=== PATIENT | male | born 1970 | race Caucasian/White ===

== ENCOUNTER 2021-03-15 10:39 | Inpatient (IN) ==
[2021-03-15 11:39] LABS: Basophils # (auto) 0.02 K/uL (0-0.2); Basophils % (auto) 0.2 %; Eosinophils # (auto) 0.04 K/uL (0-0.5); Eosinophils % (auto) 0.4 %; Hemoglobin 15.4 g/dL (14.0-18.0); Immature Granulocytes # (auto) 0.03 K/uL (0.00-0.02); Immature Granulocytes % (auto) 0.3 %; Lymphocytes # (auto) 1.24 K/uL (1.2-3.4); Lymphocytes % (auto) 11.1 %; Mean Corpuscular Hgb Conc 34.2 g/dL (32-36); Mean Corpuscular Volume 93.6 fL (80-100); Mean Platelet Volume 9.5 fL (7.4-10.4); Monocytes % (auto) 17.9 %; Neutrophils # (auto) 7.87 K/uL (1.4-6.5); Neutrophils % (auto) 70.1 %; Platelet Count 465 K/uL (130-400); RDW Coefficient of Variation 12.7 % (11.5-14.5); RDW Standard Deviation 43.9 fL (36.4-46.3); Red Blood Count 4.81 M/uL (4.7-6.1)
[2021-03-15 11:47] LABS: INR 1.2 (0.9-1.1); Partial Thromboplastin Ratio 0.9; Partial Thromboplastin Time 24.7 Seconds (21.0-31.0)
[2021-03-15 11:58] LABS: Alanine Aminotransferase 44 (12-78); Albumin Level 2.7 gm/dl (3.4-5.0); Aspartate Aminotransferase 21 U/L (15-37); BUN Creatinine Ratio 11.2 (10-20); Blood Urea Nitrogen 10 mg/dl (7-18); Calcium 8.9 mg/dl (8.5-10.1); Carbon Dioxide 27 mmol/L (21-32); Chloride 104 mmol/L (98-107); Creatinine Clr Calc Pharmacy 104.1 ml/min; Est GFR (African American) 113.6 ml/min; Glucose 91 mg/dl (70-99); Magnesium 2.3 mg/dl (1.8-2.4); Potassium 3.8 mmol/L (3.5-5.1); Sodium 137 mmol/L (136-145)
[2021-03-15 12:25] LABS: Albumin Globulin Ratio 0.5 (0.9-2); Alkaline Phosphatase 71 U/L (45-117); Bilirubin,Total 0.8 mg/dl (0.2-1); Total Protein 7.7 gm/dl (6.4-8.2); Troponin I < 0.015 ng/ml (0-0.045)
--- NOTE | 2021-03-15 12:46 | XRay Report ---
XR chest 1V portable CLINICAL HISTORY: SOB. Right-sided chest pain with episode of hemoptysis. COMPARISON STUDY: No previous studies for comparison. TECHNIQUE: 1 view of the chest FINDINGS: Single frontal view of the chest demonstrates the cardiomediastinal silhouette to be within normal li mits. There is suspicion of patchy interstitial and alveolar opacities bilaterally. The findings are most characteristic of a viral type pneumonitis. Covid 19 pneumonia should be excluded. There is no e vidence for pleural effusion. There is no evidence for vascular congestion. There is no acute osseous pathology. IMPRESSION: There is suspicion of patchy interstitial and alveolar opacities bilaterally characterist ic of a viral type pneumonitis and probable early Covid 19 pneumonia. ACT 112: Negative or not required by law. Electronically signed by: Osmani Medina M.D. 03/15/2021 12:44 PM
[2021-03-15] MEDS ORDERED: KETOROLAC 30 MG/ML VIAL IV STA (13:32)
--- NOTE | 2021-03-15 13:41 | Emergency Department Note ---
History of Present Illness General Chief complaint: Cough Stated complaint: COVID PNEUMONIA, COUGHING UP BLOOD Time Seen by Provider: 03/15/21 13:17 History of Present Illness Maximum Pain Intensity: 8 50-year-old male presents emergency department he was Covid positive on February 27, he states he has been quarantined and he was on an inhaler and prednisone for which he stopped taking yesterday. Patient states this morning he had right- sided pleuritic chest pain with a cough. Patient noticed that he had blood after coughing. Patient denies any significant shortness of breath. Patient denies nausea vomiting diarrhea fever. There are no other mitigating or alleviating factors Home Medications Medication Instructions Recorded Confirmed Type albuterol sulfate 90 mcg/actuation 2 puff INHALATION .Q4-6H 03/15/21 03/15/21 History aerosol inhaler prednisone 20 mg tablet 20 mg PO QAM 03/15/21 03/15/21 History Allergies Allergy/AdvReac Type Severity Reaction Status Date / Time No Known Allergies Allergy Unverified 03/15/21 14:52 Past Med/Surg History Medical History IBS (irritable bowel syndrome) Surgical History (Updated 03/15/21 @ 16:09 by Kim Harrington PA-C) History of colonoscopy Family History (Updated 03/15/21 @ 16:10 by Kim Harrington PA-C) Daughter Ulcerative colitis Father Depression Suicide Social History (Updated 03/15/21 @ 16:40 by Kim Harrington PA-C) Smoking Status: Current every day smoker Tobacco Type: Smokeless Tobacco (Dip or Chew) Do You Dip or Chew Tobacco: Yes; Hx Alcohol Use: Yes Alcohol Intake Frequency: Monthly or Less Hx Substance Use: No Preferred Language: German Communication Ability: Effective marital status: Feels Safe at Home: Yes Review of Systems A total of 10 systems reviewed and were otherwise negative Constitutional: no body aches Respiratory: + cough Cardiovascular: + chest pain; no calf pain Physical Exam Vital Signs Vital Signs - 24 hr 03/15/21 11:06 03/15/21 13:34 Temperature 36.9 C Temperature Source Oral Pulse Rate 108 H 94 H Pulse Rhythm Regular Pulse Strength Normal Respiratory Rate 20 28 H Respiratory Effort / Characteristics Non-Labored Non-Labored Respiratory Depth Normal Normal Respiratory Pattern Regular Blood Pressure 137/79 Blood Pressure Mean 98 Pulse Oximetry 91 94 Oxygen Delivery Method Room Air Room Air Sepsis Recent Fever Within 48 Hours No Sepsis New/Unexplained Change in Mental Status N/A Sepsis Action Taken by Nursing No Action Required VITAL SIGNS - Vital signs and nursing notes were reviewed. GENERAL -50-year-old male appearing his stated age who is in no acute distress. Communicates well with provider and answers questions appropriately. SKIN - Without rashes. HEAD - NC/AT. EYES - PERRL with EOMI bilaterally. Sclera anicteric. Palpebral conjunctiva pink and moist with no injection noted. EARS - No deformities of external structures noted on gross examination bilaterally. NOSE - Midline and without cyanosis. No epistaxis or purulent drainage noted. Septum midline without deviation or septal hematoma noted. MOUTH/OROPHARYNX - Without perioral cyanosis. Buccal mucosa pink and moist and without leukoplakia. Tongue midline with equal elevation of palate bilaterally. No tonsillar hypertrophy, erythema, or exudates noted. [] dentition noted. NECK - Neck with FROM. Supple to palpation. LUNGS - Chest wall symmetric without accessory muscle use, intercostals retractions, or central cyanosis. Normal vesicular breath sounds CTA B/L. No wheezes, rales, or rhonchi appreciated. CARDIAC - RRR with S1/S2. No murmur, rubs, or gallops appreciated. ABDOMEN - Abdominal nondistended. BS normoactive all four quadrants. No tenderness, palpable masses, hepatosplenomegaly, or ascites noted. EXTREMITIES - No clubbing or peripheral cyanosis. No pretibial edema present. +5/5 strength noted in UE/LE bilaterally. The calves are nontender bilaterally NEUROLOGIC - Cranial nerves II through XII grossly intact. Sensory intact to light touch throughout. PSYCH - A&Ox3 and cooperates fully with examiner. Pt is very pleasant and interacts well with examiner. Course Course Patient is resting in no distress is not hypoxic not tachycardic not hypotensive, patient was given IV Toradol for pleuritic chest pain. The case was discussed with the [facility] hospitalist for admission and they will decide the anticoagulation therapy that they will be using for this patient inpatient Administered Medications Discontinued Medications Ioversol (Optiray 320 125ml) 120 ml IV ONCE ONE Stop: 03/15/21 15:14 Last Admin: 03/15/21 15:17 Dose: 120 ml Documented by: [id number] Ketorolac Tromethamine (Ketorolac 30 Mg/Ml Vial) 30 mg IV NOW STA Stop: 03/15/21 13:33 Last Admin: 03/15/21 13:39 Dose: 30 mg Documented by: [id number] Medical Decision Making Medical Records Attestation: I reviewed the patient's medical records. Laboratory Data Attestation: I reviewed the patient's lab results. Result diagrams: 03/15/21 11:27 03/15/21 11:27 Lab Results 03/15/21 03/15/21 03/15/21 Range/Units 11:27 11:27 11:27 WBC 11.20 H (4.8-10.8) K/uL RBC 4.81 (4.7-6.1) M/uL Hgb 15.4 (14.0-18.0) g/dL Hct 45.0 (42-52) % MCV 93.6 (80-100) fL MCH 32.0 (25-34) pg MCHC 34.2 (32-36) g/dL RDW Std Deviation 43.9 (36.4-46.3) fL RDW Coeff of Melissa 12.7 (11.5-14.5) % Plt Count 465 H (130-400) K/uL MPV 9.5 (7.4-10.4) fL Immature Gran % (Auto) 0.3 % Neut % (Auto) 70.1 % Lymph % (Auto) 11.1 % Troup % (Auto) 17.9 % Eos % (Auto) 0.4 % Baso % (Auto) 0.2 % Neut # (Auto) 7.87 H (1.4-6.5) K/uL Lymph # (Auto) 1.24 (1.2-3.4) K/uL Troup # (Auto) 2.00 H (0.11-0.59) K/uL Eos # (Auto) 0.04 (0-0.5) K/uL Baso # (Auto) 0.02 (0-0.2) K/uL Immature Gran # (Auto) 0.03 H (0.00-0.02) K/uL PT 12.0 (9.0-12.0) Seconds INR 1.2 H (0.9-1.1) APTT 24.7 (21.0-31.0) Seconds PTT Ratio 0.9 Sodium 137 (136-145) mmol/L Potassium 3.8 (3.5-5.1) mmol/L Chloride 104 (98-107) mmol/L Carbon Dioxide 27 (21-32) mmol/L Anion Gap 6.0 (3-11) BUN 10 (7-18) mg/dl Creatinine 0.92 (0.6-1.4) mg/dl Est Cr Clr Drug Dosing 104.1 ml/min Est GFR ( Amer) 113.6 ml/min Est GFR (Non-Af Amer) 98.0 ml/min BUN/Creatinine Ratio 11.2 (10-20) Glucose 91 (70-99) mg/dl Calcium 8.9 (8.5-10.1) mg/dl Magnesium 2.3 (1.8-2.4) mg/dl Ferritin (8-388) ng/ml Total Bilirubin 0.8 (0.2-1) mg/dl AST 21 (15-37) U/L ALT 44 (12-78) Alkaline Phosphatase 71 (45-117) U/L Troponin I < 0.015 (0-0.045) ng/ml C-Reactive Protein (0-0.29) mg/dl Total Protein 7.7 (6.4-8.2) gm/dl Albumin 2.7 L (3.4-5.0) gm/dl Globulin 5.0 H (2.5-4.0) gm/dl Albumin/Globulin Ratio 0.5 L (0.9-2) 03/15/ Range/Units 11:27 WBC (4.8-10.8) K/uL RBC (4.7-6.1) M/uL Hgb (14.0-18.0) g/dL Hct (42-52) % MCV (80-100) fL MCH (25-34) pg MCHC (32-36) g/dL RDW Std Deviation (36.4-46.3) fL RDW Coeff of Melissa (11.5-14.5) % Plt Count (130-400) K/uL MPV (7.4-10.4) fL Immature Gran % (Auto) % Neut % (Auto) % Lymph % (Auto) % Troup % (Auto) % Eos % (Auto) % Baso % (Auto) % Neut # (Auto) (1.4-6.5) K/uL Lymph # (Auto) (1.2-3.4) K/uL Troup # (Auto) (0.11-0.59) K/uL Eos # (Auto) (0-0.5) K/uL Baso # (Auto) (0-0.2) K/uL Immature Gran # (Auto) (0.00-0.02) K/uL PT (9.0-12.0) Seconds INR (0.9-1.1) APTT (21.0-31.0) Seconds PTT Ratio Sodium (136-145) mmol/L Potassium (3.5-5.1) mmol/L Chloride (98-107) mmol/L Carbon Dioxide (21-32) mmol/L Anion Gap (3-11) BUN (7-18) mg/dl Creatinine (0.6-1.4) mg/dl Est Cr Clr Drug Dosing ml/min Est GFR ( Amer) ml/min Est GFR (Non-Af Amer) ml/min BUN/Creatinine Ratio (10-20) Glucose (70-99) mg/dl Calcium (8.5-10.1) mg/dl Magnesium (1.8-2.4) mg/dl Ferritin 1732.5 H (8-388) ng/ml Total Bilirubin (0.2-1) mg/dl AST (15-37) U/L ALT (12-78) Alkaline Phosphatase (45-117) U/L Troponin I (0-0.045) ng/ml C-Reactive Protein 11.00 H (0-0.29) mg/dl Total Protein (6.4-8.2) gm/dl Albumin (3.4-5.0) gm/dl Globulin (2.5-4.0) gm/dl Albumin/Globulin Ratio (0.9-2) Imaging Data Radiologist's Impression: Chest X-Ray 03/15/21 11:10 XR chest 1V portable CLINICAL HISTORY: SOB. Right-sided chest pain with episode of hemoptysis. COMPARISON STUDY: No previous studies for comparison. TECHNIQUE: 1 view of the chest FINDINGS: Single frontal view of the chest demonstrates the cardiomediastinal silhouette to be within normal limits. There is suspicion of patchy interstitial and alveolar opacities bilaterally. The findings are most characteristic of a viral type pneumonitis. Covid 19 pneumonia should be excluded. There is no evidence for pleural effusion. There is no evidence for vascular congestion. There is no acute osseous pathology. IMPRESSION: There is suspicion of patchy interstitial and alveolar opacities bilaterally characteristic of a viral type pneumonitis and probable early Covid 19 pneumonia. ACT 112: Negative or not required by law. Electronically signed by: Osmani Medina M.D. 03/15/2021 12:44 PM Chest CTA 03/15/21 12:47 CT angio chest PE protocol CLINICAL HISTORY: COVID + recently, cough w/ blood, tachycardia TECHNIQUE: Multidetector row helical CT of the chest was performed. Coronal and sagittal reformations were obtained. Coronal and sagittal MIPS were obtained from the axial data set and were submitted for review. Automated dose lowering techniques and/or adjustment according to patient size were utilized for this exam. Comparison: None available at the time of this dictation. FINDINGS: Lungs and pleura: Multifocal airspace opacities are seen bilaterally. Heart and pericardium: Heart size is normal. No pericardial effusion. Vessels: Exam is highly limited by streak artifact and patient motion. There is possible pulmonary embolus in the right lower lobe segmental and subsegmental arteries. Mediastinum and lonnie: Subcentimeter lymph nodes are seen. Chest wall and lower neck: Unremarkable. Abdomen: Unremarkable. Bones: Unremarkable. IMPRESSION: 1. Multifocal airspace opacities are seen compatible with history of Covid pneumonia. 2. Highly limited exam. Possible pulmonary embolus in the right lower lobe segmental and subsegmental arteries. ACT 112: Negative or not required by law. Electronically signed by: Richard Wright M.D. 03/15/2021 3:38 PM ECG Data Attestation: I personally reviewed and interpreted this ECG as follows: Additional Comments: EKG interpreted by me normal sinus rhythm rate of 94, right bundle branch block, normal axis, no ST segment elevation or depression, normal intervals MDM Narrative * MDM, pleurisy, PE, bronchitis, pneumonia; will check CT r/o PE Impression & Plan Pulmonary embolism Discharge Plan Visit Data Chief Complaint: Cough Stated Complaint: COVID PNEUMONIA, COUGHING UP BLOOD ED Provider: Chuck Rodriguez Discharge Problem: Pulmonary embolism Patient Disposition: Being Evaluated by Hospitalist Forms Stand Alone Forms: My [facility] Prescriptions Prescriptions: No Action prednisone 20 mg tablet 20 mg PO QAM RF: 0 albuterol sulfate 90 mcg/actuation HFA aerosol inhaler 2 puff INHALATION .Q4-6H RF: 0 Referrals Referrals: PCP,NO [Physician] - Discharge Problem: Pulmonary embolism Qualifiers: Pulmonary embolism type: multiple subsegmental (without acute cor pulmonale) Qualified Code(s): I26.94 - Multiple subsegmental pulmonary emboli without acute cor pulmonale
[2021-03-15] MEDS ORDERED: OPTIRAY 320 125ml IV ONE (15:13)
--- NOTE | 2021-03-15 15:39 | CT Scan Report ---
CT angio chest PE protocol CLINICAL HISTORY: COVID + recently, cough w/ blood, tachycardia TECHNIQUE: Multidetector row helical CT of the chest was performed. Coronal and sagittal reformations were obtained. Coronal and sagittal MIPS were obtained from the axial data set and were submitted fo r review. Automated dose lowering techniques and/or adjustment according to patient size were utiliz ed for this exam. Comparison: None available at the time of this dictation. FINDINGS: Lungs and pleura: Multifocal airspace opacities are seen bilaterally. Heart and pericardium: Heart size is normal. No pericardial effusion. Vessels: Exam is highly limited by streak artifact and patient motion. There is possible pulmonary em bolus in the right lower lobe segmental and subsegmental arteries. Mediastinum and lonnie: Subcentimeter lymph nodes are seen. Chest wall and lower neck: Unremarkable. Abdomen: Unremarkable. Bones: Unremarkable. IMPRESSION: 1. Multifocal airspace opacities are seen compatible with history of Covid pneumonia. 2. Highly limited exam. Possible pulmonary embolus in the right lower lobe segmental and subsegmenta l arteries. ACT 112: Negative or not required by law. Electronically signed by: Richard Wright M.D. 03/15/2021 3:38 PM
[2021-03-15 16:36] LABS: Ferritin 1732.5 ng/ml (8-388)
[2021-03-15] MEDS ORDERED: Heparin IV Adult Wt-Based Standard *NO* Bolus Protocol IV STA (16:39)
--- NOTE | 2021-03-15 16:54 | History & Physical Report ---
Date of Service March 15, 2021 Assessment & Plan (1) Pneumonia due to COVID-19 virus: (2) Pulmonary embolism: (3) Chest pain: (4) Blood-streaked sputum: Plan: Covid-19 Pneumonia - PNA dx 03/09; COVID dx 03/03 Possible pulmonary embolism R lower lobe segmental and subsegmental arteries. R sided chest pain Blood streaked sputum admit to [facility] Sx consistent with PE as well as CTA findings Start IV heparin will repeat CTA tomorrow to have PE confirmation before watermelon inspector tx obtain dimer, b/l venous Doppler obtain echocardiogram IV dexamethasone daily out of window for remdesivir currently not requiring oxygen prn nebs, incentive spirometry, anti-tussives Doxycycline 100mg bid esr, crp, pro siomara, ferritin pending Tobacco use, chewing tobacco encourage smoking cessation declines nicotine patch DVT ppx: IV Heparin Dispo: [facility] FULL CODE Pt collaborated with Dr. Webber, please see addendum History of Present Illness Chief Complaint: R sided chest pain x 1 day, hemoptysis, Known COVID-19 dx. Primary Care Provider: Anny Bosch This is a 50 yr old M who is otherwise healthy and takes no prescribed medications who presents to ED due to R sided chest pain x 1 day. He was dx with covid-19 on 03/03/21 with initial sx starting on 02/27/21. He initially had fever, sore throat, congestion and cough. Sx progressed to SNYDER. He had a CXR on 03/09 which showed viral pneumonia. He was prescribed oral prednisone 20mg daily x 6 days. Yesterday he developed R sided chest pain that was worse with movement and inspiration. Pain improved with toradol administration in the ER. Her further complains of worsening SNYDER and episodes of hemoptysis this morning with, "coughing fits." He describes it as coughing fits and sputum production that were blood streaked several times. Currently he is comfortable and has not developed fever for the past 3 days. He has lost his taste and smell. Initially had diarrhea, but this has since resolved. He denies f/c/s, chest pain, sob, n/v/d, abd pain, change in bowel or urinary habits. Appetite is overall dec reased. Allergies Allergy/AdvReac Type Severity Reaction Status Date / Time No Known Allergies Allergy Unverified 03/15/21 14:52 Home Medications Medication Instructions Recorded Confirmed Type albuterol sulfate 90 mcg/actuation 2 puff INHALATION .Q4-6H 03/15/21 03/15/21 History aerosol inhaler prednisone 20 mg tablet 20 mg PO QAM 03/15/21 03/15/21 History Past Med/Surg History Medical History IBS (irritable bowel syndrome) Surgical History (Updated 03/15/21 @ 16:09 by Kim Harrington PA-C) History of colonoscopy Family History (Updated 03/15/21 @ 16:10 by Kim Harrington PA-C) Daughter Ulcerative colitis Father Depression Suicide Social History (Updated 03/15/21 @ 16:40 by Kim Harrington PA-C) Smoking Status: Current every day smoker Tobacco Type: Smokeless Tobacco (Dip or Chew) Do You Dip or Chew Tobacco: Yes; Hx Alcohol Use: Yes Alcohol Intake Frequency: Monthly or Less Hx Substance Use: No Preferred Language: Gabonese Communication Ability: Effective marital status: Feels Safe at Home: Yes Review of Systems Review of Systems: All systems reviewed & are unremarkable except as noted in HPI & below Physical Exam Physical Exam: Please refer to Dr. Webber addendum for physical exam findings. Results & Data Results & Data ([facility]) Vital Signs (Past 12 Hours) Vital Signs Temp Pulse Resp BP Pulse Ox 03/15/21 13:34 94 H 28 H 94 03/15/21 11:06 36.9 C 108 H 20 137/79 91 Diagnostic Findings Chest X-Ray 03/15/21 11:10 XR chest 1V portable CLINICAL HISTORY: SOB. Right-sided chest pain with episode of hemoptysis. COMPARISON STUDY: No previous studies for comparison. TECHNIQUE: 1 view of the chest FINDINGS: Single frontal view of the chest demonstrates the cardiomediastinal silhouette to be within normal limits. There is suspicion of patchy interstitial and alveolar opacities bilaterally. The findings are most characteristic of a viral type pneumonitis. Covid 19 pneumonia should be excluded. There is no evidence for pleural effusion. There is no evidence for vascular congestion. There is no acute osseous pathology. IMPRESSION: There is suspicion of patchy interstitial and alveolar opacities bilaterally characteristic of a viral type pneumonitis and probable early Covid 19 pneumonia. ACT 112: Negative or not required by law. Electronically signed by: Osmani Medina M.D. 03/15/2021 12:44 PM Chest CTA 03/15/21 12:47 CT angio chest PE protocol CLINICAL HISTORY: COVID + recently, cough w/ blood, tachycardia TECHNIQUE: Multidetector row helical CT of the chest was performed. Coronal and sagittal reformations were obtained. Coronal and sagittal MIPS were obtained from the axial data set and were submitted for review. Automated dose lowering techniques and/or adjustment according to patient size were utilized for this exam. Comparison: None available at the time of this dictation. FINDINGS: Lungs and pleura: Multifocal airspace opacities are seen bilaterally. Heart and pericardium: Heart size is normal. No pericardial effusion. Vessels: Exam is highly limited by streak artifact and patient motion. There is possible pulmonary embolus in the right lower lobe segmental and subsegmental arteries. Mediastinum and lonnie: Subcentimeter lymph nodes are seen. Chest wall and lower neck: Unremarkable. Abdomen: Unremarkable. Bones: Unremarkable. IMPRESSION: 1. Multifocal airspace opacities are seen compatible with history of Covid pneumonia. 2. Highly limited exam. Possible pulmonary embolus in the right lower lobe segmental and subsegmental arteries. ACT 112: Negative or not required by law. Electronically signed by: Richard Wright M.D. 03/15/2021 3:38 PM Medications Administered Medication List Discontinued Medications Ioversol (Optiray 320 125ml) 120 ml IV ONCE ONE Stop: 03/15/21 15:14 Last Admin: 03/15/21 15:17 Dose: 120 ml Documented by: [id number] Ketorolac Tromethamine (Ketorolac 30 Mg/Ml Vial) 30 mg IV NOW STA Stop: 03/15/21 13:33 Last Admin: 03/15/21 13:39 Dose: 30 mg Documented by: [id number] ECG Rate (beats per minute): 94 Rhythm: normal sinus Findings: + RBBB COVID-19 Results Results COVID-19 Adm Lab Results: RBC 4.81 M/uL (4.7-6.1) 03/15/21 WBC 11.20 K/uL (4.8-10.8) H 03/15/21 Hgb 15.4 g/dL (14.0-18.0) 03/15/21 Hct 45.0 % (42-52) 03/15/21 Plt Count 465 K/uL (130-400) H 03/15/21 Neutrophils (%) (Auto) 70.1 % 03/15/21 Lymphocytes (%) (Auto) 11.1 % 03/15/21 Monocytes # (Auto) 2.00 K/uL (0.11-0.59) H 03/15/21 Eosinophils # (Auto) 0.04 K/uL (0-0.5) 03/15/21 Immature Granulocyte % (Auto) 0.3 % 03/15/21 Neutrophils # (Auto) 7.87 K/uL (1.4-6.5) H 03/15/21 Lymphocytes # (Auto) 1.24 K/uL (1.2-3.4) 03/15/21 Monocytes # (Auto) 2.00 K/uL (0.11-0.59) H 03/15/21 Eosinophils # (Auto) 0.04 K/uL (0-0.5) 03/15/21 Basophils # (Auto) 0.02 K/uL (0-0.2) 03/15/21 Immature Granulocyte # (Auto) 0.03 K/uL (0.00-0.02) H 03/15/21 Na 137 mmol/L (136-145) 03/15/21 K 3.8 mmol/L (3.5-5.1) 03/15/21 Cl 104 mmol/L (98-107) 03/15/21 CO2 27 mmol/L (21-32) 03/15/21 Anion Gap 6.0 (3-11) 03/15/21 BUN 10 mg/dl (7-18) 03/15/21 Creatinine 0.92 mg/dl (0.6-1.4) 03/15/21 BUN/Creatinine Ratio 11.2 (10-20) 03/15/21 Glucose Level 91 mg/dl (70-99) 03/15/21 Ca 8.9 mg/dl (8.5-10.1) 03/15/21 Total Bilirubin 0.8 mg/dl (0.2-1) 03/15/21 AST/SGOT 21 U/L (15-37) 03/15/21 ALT/SGPT 44 (12-78) 03/15/21 Alkaline Phosphatase 71 U/L (45-117) 03/15/21 Total Protein 7.7 gm/dl (6.4-8.2) 03/15/21 Albumin 2.7 gm/dl (3.4-5.0) L 03/15/21 Globulin 5.0 gm/dl (2.5-4.0) H 03/15/21 Albumin/Globulin Ratio 0.5 (0.9-2) L 03/15/21 Troponin I < 0.015 ng/ml (0-0.045) 03/15/21 CRP 11.00 mg/dl (0-0.29) H 03/15/21 Procalcitonin 0.06 ng/ml (0-0.5) 03/15/21 Ferritin 1732.5 ng/ml (8-388) H 03/15/21 D-Dimer Pending 03/15/21 PTT 24.7 Seconds (21.0-31.0) 03/15/21 INR 1.2 (0.9-1.1) H 03/15/21 Chest X-Ray 03/15/21 Code Status & VTE Plan Code Status Full Code VTE Prophylaxis Plan VTE Prophylaxis will be ordered: No Supervising Physician Co-Signing Physician Notes Patient is a 50-year-old male with no significant medical history who was recently diagnosed to have Covid pneumonia and completed a course of steroid as outpatient presents with history of persistent cough, minimal hemoptysis, right- sided chest pain with deep breathing, dyspnea on exertion, poor appetite. Please review HPI for complete details of presentation. Blood work suggestive of leukocytosis 11 K, thrombocytosis 465, ferritin elevated at 1732, CRP 11. Procalcitonin within normal range. Troponins negative x2. CTA showed multifocal airspace opacities compatible with history of COVID-19 pneumonia, possible pulmonary embolus in the right lower lobe segment and segmental arteries although highly limited exam due to streak artifact and patient motion. Patient was documented to have oxygen saturation 91 on room air while in ED. Patient denies any chest trauma. Physical Exam: Vitals signs as noted above General Appearance:Moderately built and nourished, no apparent distress Head: normocephalic, Atraumatic Eyes: normal inspection, EOMI Neck: supple, Trachea midline Respiratory/Chest: Decreased breath sounds, CTA, No accessory muscle use Cardiovascular: S1, S2, No murmur Abdomen/GI:Soft, Non tender, Bowel sounds present Extremities/Musculoskeletal:normal inspection, no edema Neurologic/Psych:AAOX3, grossly no focal neurological deficits Skin: normal color, warm COVID-19 pneumonia Possible pulmonary embolism CTA non confirmatory for PE We will obtain D-dimer, venous Doppler and resting echo We will give gentle fluids and repeat CT for PE tomorrow. Antitussives. Given elevated CRP and oxygen saturation 91, will start on dexamethasone Out of window for remdesivir Empirically start on doxycycline We will consider pulmonary evaluation if patient develops significant hemoptysis Patient understand the risk of worsening of hemoptysis /bleeding and agrees to proceed with anticoagulation given possible PE. I personally reviewed the record. Patient is interviewed and examined at [facility]. Patient's care is coordinated with Kim Harrington PA-C. Please refer to the documentation above for details of patient's presentation and for discussion of other issues. (1) Pulmonary embolism Pulmonary embolism type: multiple subsegmental (without acute cor pulmonale) Qualified Code(s): I26.94 - Multiple subsegmental pulmonary emboli without acute cor pulmonale
[2021-03-15] MEDS ORDERED: HEPARIN 25000 UNIT/500 ML D5W IV ONE (17:05)
[2021-03-15] MEDS ORDERED: dexAMETHasone 6 MG in SYRINGE 0 ML IV ONE (17:15)
[2021-03-15] MEDS: HEPARIN SODIUM/DEXTROSE 25,000 UNITS/500 ML BAG IV SCH (17:30)
--- NOTE | 2021-03-15 18:06 | Ultrasound Report ---
BILATERAL LOWER EXTREMITY VENOUS DOPPLER HISTORY: Acute pain and swelling of the lower legs Possible PE on CT R/O DVT COMPARISON STUDY: None. FINDINGS: There is normal compressibility, flow, and augmentation within the bilateral lower extremit y deep venous systems. IMPRESSION: No DVT within the right or left lower extremity. ACT 112: Negative or not required by law. Electronically signed by: Brent Oro M.D. 03/15/2021 6:05 PM
[2021-03-15 18:12] LABS: D Dimer 10100 ug/L FEU (0-500)
[2021-03-15] MEDS ORDERED: POLYETHYLENE (MIRALAX) 17 GM PACK PO PRN (18:35)
[2021-03-15] MEDS ORDERED: guaiFENesin/DEXTROM SYRUP 200MG/20MG 10ML UDC PO PRN (18:35)
[2021-03-15] MEDS ORDERED: MAGNESIUM HYDROXIDE SUSP 30 ML UDC PO PRN (18:35)
[2021-03-15] MEDS ORDERED: ONDANSETRON INJ 2 MG/ML 2 ML VIAL IV PRN (18:35)
[2021-03-15] MEDS ORDERED: ALUMINUM/MAGNESIUM SUSP 30 ML UDC PO PRN (18:35)
[2021-03-15] MEDS ORDERED: ALBUTEROL 0.083% NEBU SOLN 3 ML VIAL NEB PRN (18:35)
[2021-03-15] MEDS ORDERED: SODIUM CHLORIDE 0.9% 1000ML 1,000 ML IV ONE (19:00)
[2021-03-15] MEDS: BENZONATATE 100 MG CAPSULE PO SCH (20:10)
[2021-03-15] MEDS: DOXYCYCLINE HYCLATE 100 MG CAP PO SCH (20:10)
[2021-03-16 00:01] LABS: Partial Thromboplastin Ratio 1.3
[2021-03-16] MEDS ORDERED: HEPARIN SOD (PORCINE) 1000 UNIT/ML IV ONE (00:20)
[2021-03-16 06:27] LABS: Hematocrit (blood only) 40.8 % (42-52); Hemoglobin 14.1 g/dL (14.0-18.0); Mean Corpuscular Hemoglobin 31.7 pg (25-34); Mean Corpuscular Hgb Conc 34.6 g/dL (32-36); Mean Corpuscular Volume 91.7 fL (80-100); Mean Platelet Volume 9.5 fL (7.4-10.4); Platelet Count 441 K/uL (130-400); RDW Coefficient of Variation 12.4 % (11.5-14.5); RDW Standard Deviation 41.8 fL (36.4-46.3); Red Blood Count 4.45 M/uL (4.7-6.1); White Blood Count 13.57 K/uL (4.8-10.8)
[2021-03-16 07:03] LABS: Partial Thromboplastin Ratio 1.6; Partial Thromboplastin Time 41.6 Seconds (21.0-31.0)
[2021-03-16 07:11] LABS: BUN Creatinine Ratio 16.6 (10-20); Calcium 8.7 mg/dl (8.5-10.1); Creatinine Clr Calc Pharmacy 131.3 ml/min; Est GFR (African American) 127.1 ml/min; Est GFR (Non-African American) 109.7 ml/min; Potassium 4.5 mmol/L (3.5-5.1)
[2021-03-16] MEDS: ACETAMINOPHEN 325 MG TAB PO PRN ×2 (09:43→21:04)
[2021-03-16] MEDS: BENZONATATE 100 MG CAPSULE PO SCH ×3 (09:43→21:00)
[2021-03-16] MEDS: dexAMETHasone 6 MG in SYRINGE 0 ML IV SCH (09:44)
[2021-03-16] MEDS: DOXYCYCLINE HYCLATE 100 MG CAP PO SCH (10:26)
[2021-03-16] MEDS: HEPARIN SODIUM/DEXTROSE 25,000 UNITS/500 ML BAG IV SCH ×2 (11:26→15:19)
[2021-03-16] MEDS ORDERED: OPTIRAY 320 125ml IV ONE (11:56)
--- NOTE | 2021-03-16 12:29 | CT Scan Report ---
CT angio chest PE protocol CT DOSE: 499.80 mGycm HISTORY: 50 years-old Male with PE. Acute shortness of breath with tachycardia and cough. COVID Pos itive. TECHNIQUE: Multiple CTA images of the chest were obtained after the intravenous administration of 119 ml Optiray. Coronal and sagittal MIPS were obtained from the axial data set and were submitted for review. All measurements were obtained according to NASCET criteria. A dose lowering technique was u tilized adhering to the principles of ALARA. COMPARISON: CTA chest and Doppler study 03/15/2021 FINDINGS: CTA: The heart is size. No pericardial effusion. No thoracic aortic aneurysm or dissection. Patency of the imaged great vessels. Respiratory motion artifact limits evaluation of the pulmonary artery. Segment al and subsegmental pulmonary emboli are noted bilaterally, notably within the right lower lobe on im age 110 and left upper lobe on image 143. No saddle embolus or evidence of right heart strain. CT CHEST: Unremarkable thyroid. Mildly enlarged subcarinal and hilar lymph nodes measure up to 10 mm. Trace lef t and small right pleural effusions. No pneumothorax. Multilobar bilateral subpleural and bibasilar p redominant groundglass and consolidative opacities are redemonstrated which have not significant garcia ged from yesterday's study. The central airways are patent. Unchanged mild wall thickening of the distal esophagus. Unremarkable soft tissues. There is no acute fracture. Mild degenerative changes of the spine. IMPRESSION: 1. Bilateral acute segmental and subsegmental pulmonary emboli. 2. Multifocal bilateral groundglass and alveolar opacities compatible with viral pneumonia. 3. Trace left and small right pleural effusions. 4. Mild mediastinal and hilar adenopathy, likely reactive. 5. Mild distal esophageal wall thickening. Correlate clinically to exclude esophagitis. ACT 112: Negative or not required by law. The above report was generated using voice recognition software. It may contain grammatical, syntax o r spelling errors. Electronically signed by: Brent Oro M.D. 03/16/2021 12:28 PM
--- NOTE | 2021-03-16 13:09 | Hospitalist Progress Note ---
Date of Service March 16, 2021 Assessment & Plan (1) Pneumonia due to COVID-19 virus: (2) Pulmonary embolism: (3) Chest pain: (4) Blood-streaked sputum: Plan: Covid-19 Pneumonia - PNA dx 03/09; COVID dx 03/03 Possible pulmonary embolism R lower lobe segmental and subsegmental arteries. R sided chest pain Blood streaked sputum CT PE today showed bilateral acute segmental and subsegmental PE and multifocal bilateral groundglass opacities. Continue heparin drip. Educated patient on anticoagulation. Patient would prefer a NOAC on discharge. Continue dexamethasone at this time. Procalcitonin is negative.Discontinue antibiotics. Patient will like to be discharge as soon as possible. Will need 2 step in the morning to determine oxygen requirement as Tobacco use, chewing tobacco Provided smoking cessation counseling DVT ppx: IV Heparin Dispo: med tele FULL CODE Possible discharge tomorrow Admission and Anticipated Discharge Date Admission Date: March 15, 2021 Subjective Patient seen and examined. Reports cough. Reports improvement in right-sided chest pain with coughing. No shortness of breath. No nausea, vomiting, anorexia, abdominal pain, diarrhea No dysuria, frequency, urgency Physical Exam Constitutional: + well hydrated; no acute distress Eyes: PERRL, conjunctivae normal, anicteric sclerae ENMT: external ear and nose normal, oropharynx normal Respiratory: On room air. Clear to auscultation bilaterally. Cardiovascular: Rate/Rhythm: regular rate and regular rhythm S1-S2 Gastrointestinal (Abdomen): normal bowel sounds, soft, nontender, no hepato splenomegaly Musculoskeletal: No pedal edema Neurologic: PERRL, EOMI, accommodation nl, no face palsy, no dysarthria Results & Data Results & Data ([facility]) Vital Signs (Past 12 Hours) Vital Signs Temp Pulse Pulse Resp BP Pulse Ox 03/16/21 11:55 36.9 C 91 H 18 135/81 92 03/16/21 07:55 79 03/16/21 07:30 37.1 C 61 18 120/77 93 03/16/21 03:45 36.9 C 88 20 122/77 92 Laboratory Results Abnormal lab results 03/15/21 03/15/21 03/16/21 Range/Units 17:07 23:24 06:08 WBC 13.57 H (4.8-10.8) K/uL RBC 4.45 L (4.7-6.1) M/uL Hct 40.8 L (42-52) % Plt Count 441 H (130-400) K/uL APTT 33.0 H (21.0-31.0) Seconds D-Dimer 96965 H* (0-500) ug/L FEU Glucose (70-99) mg/dl 03/16/21 03/16/21 03/16/21 Range/Units 06:08 06:08 13:16 WBC (4.8-10.8) K/uL RBC (4.7-6.1) M/uL Hct (42-52) % Plt Count (130-400) K/uL APTT 41.6 H 38.5 H (21.0-31.0) Seconds D-Dimer (0-500) ug/L FEU Glucose 129 H (70-99) mg/dl (1) Pulmonary embolism Pulmonary embolism type: multiple subsegmental (without acute cor pulmonale) Qualified Code(s): I26.94 - Multiple subsegmental pulmonary emboli without acute cor pulmonale
[2021-03-16 13:40] LABS: Partial Thromboplastin Ratio 1.5; Partial Thromboplastin Time 38.5 Seconds (21.0-31.0)
[2021-03-16 20:44] LABS: Partial Thromboplastin Ratio 1.5; Partial Thromboplastin Time 38.5 Seconds (21.0-31.0)
--- NOTE | 2021-03-16 23:08 | Electrocardiogram Report ---
Test Reason : Blood Pressure : / mmHG Vent. Rate : 094 BPM Atrial Rate : 094 BPM P-R Int : 138 ms QRS Dur : 124 ms QT Int : 386 ms P-R-T Axes : 047 004 024 degrees QTc Int : 482 ms Normal sinus rhythm Right bundle branch block Abnormal ECG No previous ECGs available Confirmed by Sukhi Napoles ([id number]) on 03/16/2021 11:07:52 PM Referred By: ER Confirmed By:Sukhi Napoles
[2021-03-17] MEDS: HEPARIN SODIUM/DEXTROSE 25,000 UNITS/500 ML BAG IV SCH ×2 (01:40→04:03)
[2021-03-17 03:21] LABS: Basophils # (auto) 0.02 K/uL (0-0.2); Basophils % (auto) 0.1 %; Hematocrit (blood only) 39.3 % (42-52); Hemoglobin 13.6 g/dL (14.0-18.0); Immature Granulocytes # (auto) 0.05 K/uL (0.00-0.02); Immature Granulocytes % (auto) 0.4 %; Lymphocytes # (auto) 1.41 K/uL (1.2-3.4); Lymphocytes % (auto) 10.3 %; Mean Corpuscular Hemoglobin 31.5 pg (25-34); Mean Corpuscular Hgb Conc 34.6 g/dL (32-36); Mean Platelet Volume 9.7 fL (7.4-10.4); Monocytes # (auto) 1.65 K/uL (0.11-0.59); Neutrophils # (auto) 10.62 K/uL (1.4-6.5); Neutrophils % (auto) 77.2 %; Platelet Count 481 K/uL (130-400); RDW Coefficient of Variation 12.1 % (11.5-14.5); RDW Standard Deviation 40.5 fL (36.4-46.3); Red Blood Count 4.32 M/uL (4.7-6.1); White Blood Count 13.75 K/uL (4.8-10.8)
[2021-03-17 03:34] LABS: Partial Thromboplastin Ratio 1.6; Partial Thromboplastin Time 42.4 Seconds (21.0-31.0)
[2021-03-17 03:45] LABS: C Reactive Protein 10.8 mg/dl (0-0.29); Calcium 8.8 mg/dl (8.5-10.1); Creatinine Clr Calc Pharmacy 149.8 ml/min; Est GFR (African American) 134.2 ml/min; Est GFR (Non-African American) 115.8 ml/min; Potassium 3.9 mmol/L (3.5-5.1)
--- NOTE | 2021-03-17 08:12 | Electrocardiogram Report ---
Test Reason : Blood Pressure : / mmHG Vent. Rate : 076 BPM Atrial Rate : 076 BPM P-R Int : 150 ms QRS Dur : 130 ms QT Int : 436 ms P-R-T Axes : 072 035 047 degrees QTc Int : 490 ms Normal sinus rhythm Right bundle branch block Abnormal ECG When compared with ECG of 15-MAR-2021 11:21, No significant change was found Confirmed by Sukhi Napoles ([id number]) on 03/17/2021 8:12:20 AM Referred By: REFERRED SELF Confirmed By:Sukhi Napoles
[2021-03-17] MEDS: dexAMETHasone 6 MG in SYRINGE 0 ML IV SCH (08:13)
[2021-03-17] MEDS: BENZONATATE 100 MG CAPSULE PO SCH (08:13)
[2021-03-17] MEDS ORDERED: APIXABAN 5 MG TABLET PO SCH (09:00)
[2021-03-17 10:13] LABS: Partial Thromboplastin Ratio 1.7; Partial Thromboplastin Time 43.5 Seconds (21.0-31.0)
--- NOTE | 2021-03-17 10:42 | Discharge Summary ---
Date of Service March 17, 2021 Admission HPI Per Admitting Provider This is a 50 yr old M who is otherwise healthy and takes no prescribed medications who presents to ED due to R sided chest pain x 1 day. He was dx with covid-19 on 03/03/21 with initial sx starting on 02/27/21. He initially had fever, sore throat, congestion and cough. Sx progressed to SNYDER. He had a CXR on 03/09 which showed viral pneumonia. He was prescribed oral prednisone 20mg daily x 6 days. Yesterday he developed R sided chest pain that was worse with movement and inspiration. Pain improved with toradol administration in the ER. Her further complains of worsening SNYDER and episodes of hemoptysis this morning with, "coughing fits." He describes it as coughing fits and sputum production that were blood streaked several times. Currently he is comfortable and has not developed fever for the past 3 days. He has lost his taste and smell. Initially had diarrhea, but this has since resolved. He denies f/c/s, chest pain, sob, n/v/d, abd pain, change in bowel or urinary habits. Appetite is overall decreased. Admission Exam Per Admitting Provider General Appearance:Moderately built and nourished, no apparent distress Head: normocephalic, Atraumatic Eyes: normal inspection, EOMI Neck: supple, Trachea midline Respiratory/Chest: Decreased breath sounds, CTA, No accessory muscle use Cardiovascular: S1, S2, No murmur Abdomen/GI:Soft, Non tender, Bowel sounds present Extremities/Musculoskeletal:normal inspection, no edema Neurologic/Psych:AAOX3, grossly no focal neurological deficits Skin: normal color, warm Principal Diagnosis COVID 19 pneumonia Acute pulmonary embolism Discharge Exam Constitutional + well hydrated; no acute distress Eyes PERRL, conjunctivae normal, anicteric sclerae ENMT external ear and nose normal, oropharynx normal Respiratory normal respiratory effort, lungs clear to auscultation Cardiovascular Rate/Rhythm: regular rate and regular rhythm S1 S2 Gastrointestinal (Abdomen) normal bowel sounds, soft, nontender, no hepatosplenomegaly Musculoskeletal no cyanosis or clubbing, extremities motor strength 5/5 Neurologic PERRL, EOMI, accommodation nl, no face palsy, no dysarthria Psychiatric A+Ox3, euthymic affect Discharge Data Allergies Allergy/AdvReac Type Severity Reaction Status Date / Time No Known Allergies Allergy Unverified 03/15/21 14:52 Consultations 03/15/21 16:15 ED Decision to Admit Stat Ordered Studies 03/15/21 12:47 CT angio chest PE protocol Stat Lungs and pleura: Multifocal airspace opacities are seen bilaterally. Heart and pericardium: Heart size is normal. No pericardial effusion. Vessels: Exam is highly limited by streak artifact and patient motion. There is possible pulmonary embolus in the right lower lobe segmental and subsegmental arteries. Mediastinum and lonnie: Subcentimeter lymph nodes are seen. Chest wall and lower neck: Unremarkable. Abdomen: Unremarkable. Bones: Unremarkable. IMPRESSION: 1. Multifocal airspace opacities are seen compatible with history of Covid pn eumonia. 2. Highly limited exam. Possible pulmonary embolus in the right lower lobe segmental and subsegmental arteries. 03/15/21 16:40 US venous doppler LE BI Routine There is normal compressibility, flow, and augmentation within the bilateral lower extremity deep venous systems. IMPRESSION: No DVT within the right or left lower extremity. 03/16/21 12:00 CT angio chest PE protocol Routine CTA: The heart is size. No pericardial effusion. No thoracic aortic aneurysm or dissection. Patency of the imaged great vessels. Respiratory motion artifact limits evaluation of the pulmonary artery. Segmental and subsegmental pulmonary emboli are noted bilaterally, notably within the right lower lobe on image 110 and left upper lobe on image 143. No saddle embolus or evidence of right heart strain. CT CHEST: Unremarkable thyroid. Mildly enlarged subcarinal and hilar lymph nodes measure up to 10 mm. Trace left and small right pleural effusions. No pneumothorax. Multilobar bilateral subpleural and bibasilar predominant groundglass and consolidative opacities are redemonstrated which have not significant changed from yesterday's study. The central airways are patent. Unchanged mild wall thickening of the distal esophagus. Unremarkable soft tissues. There is no acute fracture. Mild degenerative changes of the spine. IMPRESSION: 1. Bilateral acute segmental and subsegmental pulmonary emboli. 2. Multifocal bilateral groundglass and alveolar opacities compatible with viral pneumonia. 3. Trace left and small right pleural effusions. 4. Mild mediastinal and hilar adenopathy, likely reactive. 5. Mild distal esophageal wall thickening. Correlate clinically to exclude esophagitis. Hospital Course (1) Pneumonia due to COVID-19 virus: (2) Pulmonary embolism: (3) Chest pain: (4) Blood-streaked sputum: Covid-19 Pneumonia - PNA dx 03/09; COVID dx 03/03 Possible pulmonary embolism R lower lobe segmental and subsegmental arteries. R sided chest pain Blood streaked sputum CT PE showed bilateral acute segmental and subsegmental PE and multifocal bilateral groundglass opacities. Was initially started on heparin drip. Educated patient on anticoagulation. Patient preferred NOAC on discharge. Continue dexamethasone at this time. 2 Sted did not show oxygen requirement Started on eliquis today and provided education about this. Will need anticoagulation for at least 3 months Total Time Total Time Spent Total Time Spent (In Minutes): 45 Total Time Includes: Examination of the Patient, Discharge Planning and Medication Reconciliation Discharge Plan Discharge Items Patient Disposition: Home - Self-Care Reason For Visit: KNOWN COVID 19, R SIDED CHEST PAIN Discharge Diagnosis: COVID 19 pneumonia Acute pulmonary embolism (Blood clots in the blood vessel of your lungs) Activity: Resume your previous activity Non-emergency contact: Primary Care Provider Call non-emergency contact if: you have any medication questions and your symptoms worsen Follow-up/Referrals: Anny Bosch CRNP [Primary Care Provider] - Diet: Regular Addtl Attending Provider Instructions: Mr. Garrett You came to the hospital complaining of right-sided chest pain that was worse with movement and breathing. You have been diagnosed of COVID-19 infection 2 weeks ago and had been on prednisone. You were evaluated and found to have COVID-19 pneumonia with acute pulmonary embolism [blood clots in the blood vessels of your lungs]. You were started on anticoagulation [blood thinners]. You are being discharged on blood thinner called apixaban [Eliquis]. You will be on this blood thinner for at least 3 months (usually 3-6 months). Take eliquis 10mg twice daily fo 7 days and then 5mg twice daily afterwards. It is very important that you follow-up with your primary doctor. It was a pleasure taking care of you. Addtl Glue Jointer Feeder Provider Instructions: Coronavirus disease 2019 (COVID-19) is a virus that causes a respiratory illness. It is caused by a coronavirus called 2019 novel coronavirus (2019- nCoV). There are many types of coronavirus. Coronaviruses are a very common cause of bronchitis. They may sometimes cause lung infection(pneumonia). Symptoms can range from mild to severe respiratory illness. These viruses are also foundin some animals. COVID-19 was first found in people in [facility], in late 2019. In 2020, several cases of COVID-19 have been confirmed in the [place] Public health officials are working to find the source. How the virus spreads is not yet fully known. It may be spread through droplets of fluid that a person coughs or sneezes into the air. It may be spread if you touch a surface with virus on it, such as a handle or object, and then touch your mouth. What are the symptoms of COVID-19? Some people have no symptoms or mild symptoms. Symptoms may appear 2 to 14 days after contact with the virus. Symptoms can include: Fever Coughing Trouble breathing What are possible complications from COVID-19? In many cases, this virus can cause infection (pneumonia) in both lungs. In some cases, this can cause . How is COVID-19 diagnosed? Your healthcare provider will ask about your symptoms. He or she will also ask about your recent travel and contact with sick people. Testing for the virus is only done through the CDC. If yourhealthcare provider thinks you may have COVID- 19, he or she will work with your local health department and the CDC on testing. Follow all instructions from your healthcare provider. COVID-19 is diagnosed by: Nasal and throat swab. A cotton-tipped swab is wiped inside your nose or throat. This is done to check for viruses in your nasal mucus. Sputum culture. A small sample of mucus coughed from your lungs (sputum) is collected if you have a cough. It is checked for the virus. How is COVID-19 treated? There is currently no medicine to treat the virus. Treatment is done to help your body while it fights the virus. This is known as supportive care. Supportive care may include: Pain medicine. These include acetaminophen and ibuprofen. They are used to help ease pain and reduce fever. Bed rest. This helps your body fight the illness. For severe illness, you may need to stay in the hospital. Care during severe illness may include: IV (intravenous) fluids.These are given through a vein to help keep your body hydrated. Oxygen. Supplemental oxygen or ventilation with a breathing machine (ventilator) may be given. This is done to keep enough oxygen in your body. Are you at risk for COVID-19? If youve been to a place where people have been sick with this virus, you are at risk for infection. You are at risk if you: Recently traveled to an affected area Had contact with a sick person who recently traveled to this area Had contact with a person who was diagnosed with COVID-19 How can COVID-19 be prevented? There is no vaccine yet. The best prevention is to not have contact with the virus. The CDC advises that people should not travel to areas where there are COVID-19 outbreaks right now for any reason that is not urgent. To help prevent spreading the infection, wash your hands often, or use an alcohol-basedhand nuclear medicine tech. If you are in an area with COVID-19: Wash your hands often. Or use an alcohol-based hand nuclear medicine tech often. Only touch your eyes, nose, or mouth with clean hands. Dont have contact with people who are sick. Follow local instructions about being in public. For example, you may be told to not use public transport for a period of time. Stay away from markets that have live or animals. Wash your hands after touching any animals. Don't touch animals that may be sick. Dont share eating or drinking tools with sick people. Dont kiss someone who is sick. Clean surfaces often with disinfectant. If you were in an area with COVID-19 in the last 14 days: Call your healthcare provider. He or she can talk with local health staff to see what action may be needed. Follow all instructions from your provider. Take your temperature every morning and evening for at least 14 days. This is to check for fever. Keep a record of the readings. Keep watch for symptoms of the virus. Tell your provider right away if you have symptoms. If you were in an area with COVID-19 and have a fever or other symptoms: Dont panic. Keep in mind that other illnesses can cause similar symptoms. Stay away from work, school, and public places. Limit physical contact with family members. Don't kiss anyone or share eating or drinking utensils. Clean surfaces you touch with disinfectant. This is to help prevent the virus from spreading. Call your healthcare provider. Explain that you have been exposed to COVID-19 and have symptoms. Do this before going to any hospital. Wait for instructions. Keep in mind that healthcare staff may wear protective equipment such as masks, gowns, gloves, and eye protection. You may be put in a separate room. This is to prevent the possible virus from spreading. Tell the healthcare staff about recent travel. This includes local travel on public transport. Staff may need to find other people you have been in contact with. Follow all instructions the healthcare staff give you. If you have been diagnosed with COVID-19 Follow all instructions from your healthcare provider. Dont leave your home, except to get medical care. Call your healthcare providers office before going. They can prepare and give you instructions. This will help prevent the virus from spreading. Dont go to work, school, or public areas. Dont use public transport or taxis. Stay away from other people in your home. Have them wear face masks around you. Dont share household items or food. Wear a face mask if you can. This includes at home or in a medical facility. Cover your face with a tissue when you cough or sneeze. Throw the tissue away. Wash your hands. Wash your hands often. Caregivers should: Follow all instructions from healthcare staff. Wear a face mask and protective clothing as advised. Wash hands often. Keep track of the sick persons symptoms. Clean surfaces, fabrics, and laundry thoroughly. Keep other people away from the sick person. When to call your healthcare provider Call your healthcare provider: If youve recently traveled and have symptoms If you have been diagnosed with COVID-19 and your symptoms are worse To learn more To find out more about COVID-19, visit the CDC website at www.cdc.gov/coronavirus/2019-ncov/index.html. [employer]. [address] [place] [address]. All rights reserved. This information is not intended as a substitute for professional medical care. Always follow your healthcare professional's instructions. This information has been adapted from [employer] Pending Studies at Discharge: No Stand-Alone Forms: My [employer], Work/School Release, Smoking C essation Medications and DC Order Prescriptions: New acetaminophen 325 mg Tablet 650 mg PO Q4H PRN (Reason: pain) Qty: 60 RF: 0 Eliquis 5 mg Tablet See Rx Instructions .ROUTE .COMPLEX Qty: 74 RF: 0 Continued albuterol sulfate 90 mcg/actuation HFA aerosol inhaler 2 puff INHALATION .Q4-6H RF: 0 Discontinued prednisone 20 mg tablet 20 mg PO QAM RF: 0 Discharge Orders: Discharge Order (Routine); Ordered 03/17/21 Ordered By: Caitlyn Thomas/Other Patient Handouts: Eliquis Oral Tablet 5 mg Admission Data Admit Date/Time: 03/16/21 13:11 Attending Provider: Caitlyn Phelps I. Admit Provider: Brennen Webber Primary Care Provider: Anny Bosch Other Providers: Brennen Webber Other Interventions: Discharge Summary Assessment (RN) Last Done: 03/17/21 11:49
== END 2021-03-17 11:51 | disposition home or self-care (01) | DRG 177 ==
LOC: EDINP 10:39 → ED 10:39 → SUATTDRO 16:22 → 2W 22:23